=== PATIENT | male | born 1995 | race Caucasian/White ===

== ENCOUNTER 2018-01-22 04:36 | Emergency (ER) | payer OTHER, BC ==
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
[2018-01-22 05:18] VITALS: BP 111/68
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
== END 2018-01-22 06:00 | disposition home or self-care (01) ==
LOC: ER 04:36
DX: M79.1 Myalgia (principal); K08.9 Disorder of teeth and supporting structures, unspecified; F17.200 Nicotine dependence, unspecified, uncomplicated; V49.9XXA Car occupant (driver) (passenger) injured in unspecified traffic accident, initial encounter
CPT/HCPCS: 99284; 73110; 70450; 72125; L0120

== ENCOUNTER 2018-12-11 15:33 | Emergency (ER) | payer SELFPAY ==
[2018-12-11] MEDS ORDERED: DIPH/PERTUSS(ACELL)/TETANUS VAC/PF 0.5 ML SYR (>=10YO) IM ONE (15:56)
[2018-12-11] MEDS ORDERED: TETRACAINE HCL 0.5% OPH SOLN 4 ML OS ONE (15:56)
[2018-12-11] MEDS ORDERED: OXYCODONE-ACETAMINOPHEN 5-325 MG TABLET PO ONE (15:56)
--- NOTE | 2018-12-11 16:22 | ER Document Report ---
ED Medical Screen (RME) - General Chief Complaint: Eye Injury Stated Complaint: EYE INJURY WITH VISION LOSS Time Seen by Provider: 12/11/18 15:45 Notes: Patient is a 23-year-old male that presents to the emergency department for chief complaint of left eye injury. Patient states he was breaking a piece of wood, and it popped up and struck him in the left eye, this occurred around 230 today. ROS: Other than noted above, the 12 point review of systems was reviewed with the patient and were negative, all pertinent findings are included in the HPI. PHYSICAL EXAMINATION: Vital signs reviewed. GENERAL: Well-appearing, well-nourished and in no acute distress. HEAD: Superficial abrasions noted just inferior to the left orbit EYES: The left eye is injected ENT: Nares patent NECK: Normal range of motion CV: Heart regular rate and rhythm LUNGS: No respiratory distress Musculoskeletal: Normal range of motion NEUROLOGICAL: Normal speech PSYCH: Normal mood, normal affect. MDM: Patient seen and examined for rapid initial assessment. Vital signs reviewed. A comprehensive ED assessment and evaluation of the patient, analysis of test results and completion of the medical decision making process will be conducted by additional ED providers. *Note is created using voice recognition software and may contain spelling, syntax or grammatical errors. TRAVEL OUTSIDE OF THE [place] IN LAST 30 DAYS: No - Related Data Allergies/Adverse Reactions: No Known Drug Allergies Adverse Reaction (Verified 12/11/18 15:36) Past Medical History Renal/ Medical History: Denies: Hx Peritoneal Dialysis Past Surgical History: Reports: Hx Abdominal Surgery - bowel resection Physical Exam - Vital signs Vitals: Temp Pulse Resp BP Pulse Ox 98.2 F 117 H 14 140/55 H 97 12/11/18 15:40 12/11/18 15:40 12/11/18 15:40 12/11/18 15:40 12/11/18 15:40 Course - Vital Signs Vital signs: Temp Pulse Resp BP Pulse Ox 98.2 F 117 H 14 140/55 H 97 12/11/18 15:40 12/11/18 15:40 12/11/18 15:40 12/11/18 15:40 12/11/18 15:40
--- NOTE | 2018-12-11 19:29 | RADIOLOGY REPORT (SQ) ---
EXAM DESCRIPTION: CT ORBIT/SELLA WITHOUT COMPLETED DATE/TIME: 12/11/2018 7:14 pm REASON FOR STUDY: L eye struck by board, ?FB COMPARISON: None. TECHNIQUE: Noncontrasted images through the orbits windowed for bone and soft tissue. Additional co marianne and sagittal reconstructed images reviewed. All images stored on PACS. All CT scanners at this facility use dose modulation, iterative reconstruction, and/or weight based d osing when appropriate to reduce radiation dose to as low as reasonably achievable (ALARA). [facility]: Dose Right [facility]: CareDose [facility]: Dose Right [facility]: Teradose 4D [facility]: Smart Shoette RADIATION DOSE: CT Rad equipment meets quality standard of care and radiation dose reduction techniq ues were employed. CTDIvol: 30.4 mGy. DLP: 616 mGy-cm. mGy. LIMITATIONS: None. FINDINGS: FACIAL BONES: No fracture or bone lesion. ORBITS: Intact. No fracture. Symmetric intact globes and retroorbital soft tissues. PARANASAL SINUSES: Clear. No significant mucosal thickening, mass or fluid. No nasal polyps. Maxilla ry sinus outlets are patent. SOFT TISSUES: No mass or edema. INFERIOR BRAIN: Limited view. No acute findings. OTHER: No other significant finding. IMPRESSION: NO ACUTE FINDINGS. TECHNICAL DOCUMENTATION: JOB ID: [id number] Quality ID # [id number]: Final reports with documentation of one or more dose reduction techniques (e.g., Au tomated exposure control, adjustment of the mA and/or kV according to patient size, use of iterative reconstruction technique) 2010 [employer]- All Rights Reserved Reading location - IP/workstation name: [email or web address]
--- NOTE | 2018-12-11 19:56 | ER Document Report ---
HPI - HPI Patient complains to provider of: Left eye injury Time Seen by Provider: 12/11/18 15:45 Onset: This afternoon Onset/Duration: Sudden Quality of pain: Burning Pain Level: 5 Context: Patient states that he was in a hammer to hit on a wood board and after striking the board portion of the wood popped back hitting him in the left eye. Patient was not wearing any protective eyewear. Patient does not wear any glasses or contact lenses. Patient complains of some blurred vision to the left eye, eye pain and light sensitivity. Denies any loss of consciousness nausea or vomiting. Associated Symptoms: Other - Left eye pain. denies: Headache Exacerbated by: Denies Relieved by: Denies Similar symptoms previously: No Recently seen / treated by doctor: No - ROS ROS below otherwise negative: Yes Systems Reviewed and Negative: Yes All other systems reviewed and negative - EENT EENT: REPORTS: Eye problems - GASTROINTESTINAL Gastrointestinal: DENIES: Nausea - MUSCULOSKELETAL Musculoskeletal: DENIES: Back Pain, Neck Pain - DERM Skin Color: Normal Skin Problems: Abrasion Past Medical History - General Information source: Patient - Social History Smoking Status: Current Every Day Smoker Smoking Education Provided: Yes Frequency of alcohol use: None Drug Abuse: None Occupation: None Lives with: Family Family History: None Patient has suicidal ideation: No Patient has homicidal ideation: No - Medical History Medical History: Negative Renal/ Medical History: Denies: Hx Peritoneal Dialysis Past Surgical History: Reports: Hx Abdominal Surgery - Pyloric stenosis Vertical Provider Document - CONSTITUTIONAL Agree With Documented VS: Yes Exam Limitations: No Limitations General Appearance: WD/WN, No Apparent Distress - INFECTION CONTROL TRAVEL OUTSIDE OF THE [place] IN LAST 30 DAYS: No - HEENT HEENT: Normocephalic, PERRLA Notes: Left eye with corneal abrasion and floor seen uptake, abrasion does not overlie the pupil. No foreign body noted to cornea, no ulcer, no dendrite. Intraocular movements intact. Sclera mildly injected, left eye tearing. Positive photophobia. - RESPIRATORY Respiratory: No Respiratory Distress - MUSCULOSKELETAL/EXTREMETIES Musculoskeletal/Extremeties: MAEW - NEURO Level of Consciousness: Awake, Alert, Appropriate Motor/Sensory: No Motor Deficit - DERM Integumentary: Warm, Dry Notes: Abrasion to left lower eyelid Course - Re-evaluation Re-evalutation: 12/11/18 19:53 Dr. Albrecht to bedside to assist with slit lamp examination. Patient with corneal abrasion and no foreign body noted, no concern about globe rupture. No retained foreign body. - Vital Signs Vital signs: Temp Pulse Resp BP Pulse Ox 98.2 F 117 H 14 140/55 H 97 12/11/18 15:40 12/11/18 15:40 12/11/18 15:40 12/11/18 15:40 12/11/18 15:40 - Diagnostic Test Radiology reviewed: Reports reviewed Discharge - Discharge Clinical Impression: Cornea abrasion Qualifiers: Encounter type: initial encounter Laterality: left Qualified Code(s): S05.02XA - Injury of conjunctiva and corneal abrasion without foreign body, left eye, initial encounter Facial abrasion Qualifiers: Encounter type: initial encounter Qualified Code(s): S00.81XA - Abrasion of other part of head, initial encounter Condition: Stable Disposition: HOME, SELF-CARE Instructions: Abrasions of the Face ([facility]), Corneal Abrasion ([facility]), Eyedrop Use ([facility]), Tetanus Immunization Given ([facility]) Additional Instructions: Return immediately for any new or worsening symptoms Followup with opthamology, call tomorrow for follow-up appointment Prescriptions: Oxycodone HCl/Acetaminophen [Percocet 5-325 mg Tablet] 1 tab PO ASDIR PRN #12 tablet PRN Reason: Polymyxin B Sulfate/Tmp [Polytrim Oph Soln 10 ml] 1 drop LFT_EYE ASDIR #1 bottle Forms: Smoking Cessation Education Referrals: [facility] [Provider Group] - Follow up tomorrow
[2018-12-11 20:06] VITALS: BP 143/74
--- NOTE | 2018-12-12 09:17 | ER Document Report ---
Doctor's Note Notes: I personally and independently obtained patient history and examined the patient in conjunction with the APC and agree with the assessment, treatment plan and disposition of the patient as recorded by the APC, and have reviewed the APC's note. HISTORY OF PRESENT ILLNESS: Patient is a 23-year-old male that presents to the emergency department for chief complaint of left eye pain after injury. he reports that he was breaking a piece of wood with a hammer and a piece of wood, broke off and struck him in the left eye. This occurred around 2:30 PM today, he has had pain in the eye, redness, itching and tearing. ROS: Constitutional: Negative for fever. Cardiovascular: Negative for chest pain. Respiratory: Negative for shortness of breath. Gastrointestinal: Negative for vomiting or abdominal pain Musculoskeletal: Negative for arm, leg or back pain Skin: Negative for rash. Neurological: Negative for weakness or numbness. Other than noted above, the 12 point review of systems was reviewed with the patient and were negative, all pertinent findings are included in the HPI. PHYSICAL EXAMINATION: Vital signs reviewed, nursing noted reviewed. GENERAL: Patient appears uncomfortable on exam, but in no immediate distress HEAD: Superficial abrasion under the left eye, no active bleeding EYES: Left conjunctival injection, tearing, EOMI, PERRLA, right eye appears normal ENT: nares patent, oropharynx clear without exudates. Moist mucous membranes. NECK: Normal range of motion, supple without lymphadenopathy LUNGS: Breath sounds clear to auscultation bilaterally and equal. No wheezes rales or rhonchi. HEART: Regular rate and rhythm without murmurs ABDOMEN: Soft, nontender, normoactive bowel sounds. No rebound, guarding, or rigidity. No masses appreciated. EXTREMITIES: Nontender, good range of motion, no pitting or edema. NEUROLOGICAL: No focal neurological deficits. Moves all extremities spontaneously Motor and sensory grossly intact on exam. PSYCH: Normal mood, normal affect. SKIN: Warm, Dry, normal turgor, superficial abrasion noted just under the left orbit MEDICAL DECISION MAKING: Patient was seen and examined, vital signs reviewed, I personally evaluated the patient under slit lamp microscope, with fluorescein dye, and patient was noted to have a corneal abrasion, and the 2 to 3 o'clock position, curvilinear in pattern, lateral to the pupil, negative Olegario sign, no evidence of retained corneal foreign body. Patient will be placed on antibiotic eyedrops, and discharged home with medication for pain and to follow-up with ophthalmology which she is agreeable to. Please review detail APC documentation. *Note is created using voice recognition software and may contain spelling, syntax or grammatical errors.
== END 2018-12-11 20:10 | disposition home or self-care (01) ==
LOC: ER 15:33
PROC: 3E0234Z Introduction of Serum, Toxoid and Vaccine into Muscle, Percutaneous Approach (ICD-10-PCS; principal; 2018-12-11)
DX: S05.02XA Injury of conjunctiva and corneal abrasion without foreign body, left eye, initial encounter (principal); S00.81XA Abrasion of other part of head, initial encounter; W22.8XXA Striking against or struck by other objects, initial encounter; Y93.89 Activity, other specified; Z23 Encounter for immunization; F17.200 Nicotine dependence, unspecified, uncomplicated
CPT/HCPCS: 99283; 90471; 70480; 90715; J3490

== ENCOUNTER 2020-03-31 09:41 | Emergency (ER) | payer OTHER ==
[2020-03-31 09:47] VITALS: BP 123/74
--- NOTE | 2020-03-31 10:00 | ER Document Report ---
ED General - General Chief Complaint: Ankle Pain Stated Complaint: ANKLE PAIN Time Seen by Provider: 03/31/20 09:58 Primary Care Provider: RICHARD HOOVER JR, DO [ACTIVE PROVISIONAL STAFF] - Follow up tomorrow Notes: 24-year male presents with left ankle pain and swelling with inability to ambulate since yesterday when he landed wrong on trampoline. Does not know exactly what happened to the ankle. Pain is mostly lateral but also posterior medial. No knee pain calf pain leg pain or other injuries. No numbness or tingling. Smoker. Has been taking his brothers hydrocodone pills. TRAVEL OUTSIDE OF THE [place] IN LAST 30 DAYS: No - Related Data Allergies/Adverse Reactions: No Known Drug Allergies Adverse Reaction (Verified 12/11/18 15:36) Past Medical History - General Information source: Patient - Social History Smoking Status: Current Every Day Smoker Smoking Education Provided: Yes - The patient ED visit today was directly related to their abuse of tobacco. Family History: None Renal/ Medical History: Denies: Hx Peritoneal Dialysis Past Surgical History: Reports: Hx Abdominal Surgery - Pyloric stenosis Review of Systems - Review of Systems Notes: REVIEW OF SYSTEMS GEN: Denies fever, chills, weight loss ENT: Denies sore throat, nasal discharge, ear pain EYES: Denies blurry vision, eye pain, discharge CV: Denies chest pain, palpitations, edema RESP: Denies cough, shortness of breath, wheezing GI: Denies abdominal pain, nausea, vomiting, diarrhea MSK: Ankle pain, SKIN: Denies rash, skin lesions LYMPH: Denies swollen glands/lymph nodes NEURO: Denies headache, focal weakness or numbness, dizziness PSYCH: Denies depression, suicidal or homicidal ideation PHYSICAL EXAMINATION General: No acute distress, well-nourished Head: Atraumatic, normocephalic ENT: Mouth normal, oropharynx moist, no exudates or tonsillar enlargement Eyes: Conjunctiva normal, pupils equal, lids normal Neck: No JVD, supple, no guarding CVS: Normal rate, regular rhythm, no murmurs Resp: No resp distress, equal and normal breath sounds bilaterally GI: Nondistended, soft, no tenderness to palpation, no rebound or guarding Ext: Edema from the foot to the upper ankle on the left with minimal posterior medial tenderness and exquisite lateral malleolus tenderness. No fibular head tenderness no calf squeeze tenderness or tenderness above the ankle xt Back: No CVA or midline TTP Skin: No rash, warm Lymphatic: No lymphadeopathy noted Neuro: Awake, alert. Face symmetric. GCS 15. Physical Exam - Vital signs Vitals: Temp Pulse Resp BP Pulse Ox 98.4 F 78 16 123/74 98 03/31/20 09:45 03/31/20 09:45 03/31/20 09:45 03/31/20 09:45 03/31/20 09:45 Course - Re-evaluation Re-evalutation: 03/31/20 15:18 Patient presents with ankle injury yesterday. X-ray confirms fibula fracture, also has medial tenderness to suspect bimalleolar equivalent. Splinted nonweightbearing, asked not to take his brothers pain meds but I did prescribe him his own supply of narcotic given the severe pain. Will be referred to orthopedics for eventual likely surgery. Given splint precautions. No signs of compartment syndrome or neurovascular compromise in the ED. I have discussed with the patient there likely diagnosis, aftercare plan, follow-up plans and my usual and customary return precautions. They verbalized understanding of this. - Vital Signs Vital signs: Temp Pulse Resp BP Pulse Ox 98.4 F 78 16 123/74 98 03/31/20 09:57 03/31/20 09:45 03/31/20 09:45 03/31/20 09:45 03/31/20 09:45 Procedures - Immobilization Left Mid- Ankle Pre-Proc Neuro Vasc Exam: Normal Immobilizer type: Short Leg Posterior - With stirrups Performed by: Provider assisted Post-Proc Neuro Vasc Exam: Normal Alignment checked and good: Yes - Clinically Discharge - Discharge Clinical Impression: Closed fracture of distal end of fibula Qualifiers: Encounter type: initial encounter Fracture morphology: other fracture Laterality: left Qualified Code(s): S82.832A - Other fracture of upper and lower end of left fibula, initial encounter for closed fracture Condition: Good Disposition: HOME, SELF-CARE Instructions: Use of Crutches ([facility]), Fractured Ankle (Bimalleolar) ([facility]), Oral Narcotic Medication ([facility]) Prescriptions: Oxycodone HCl/Acetaminophen [Percocet 5-325 mg Tablet] 1 - 2 tab PO Q4H PRN #15 tablet PRN Reason: Forms: Return to Work Referrals: RICHARD HOOVER JR, DO [ACTIVE PROVISIONAL STAFF] - Follow up tomorrow
--- NOTE | 2020-03-31 10:38 | RADIOLOGY REPORT (SQ) ---
EXAM DESCRIPTION: ANKLE LEFT COMPLETE IMAGES COMPLETED DATE/TIME: 03/31/2020 10:19 am REASON FOR STUDY: injury COMPARISON: None. NUMBER OF VIEWS: Three views. TECHNIQUE: AP, lateral, and oblique radiographic images acquired of the left ankle. LIMITATIONS: None. FINDINGS: MINERALIZATION: Normal. BONES: Spiral fracture distal fibula at level of syndesmosis. 1/2 shaft width posterior displacement . JOINTS: No effusions. SOFT TISSUES: Lateral swelling. OTHER: No other significant finding. IMPRESSION: Fracture distal fibula. TECHNICAL DOCUMENTATION: JOB ID: [id number] 2010 [employer]- All Rights Reserved Reading location - IP/workstation name: [email or web address]
== END 2020-03-31 10:58 | disposition home or self-care (01) ==
LOC: ER 09:41
PROC: 2W3RX1Z Immobilization of Left Lower Leg using Splint (ICD-10-PCS; principal; 2020-03-31)
DX: S82.832A Other fracture of upper and lower end of left fibula, initial encounter for closed fracture (principal); M25.572 Pain in left ankle and joints of left foot; M79.89 Other specified soft tissue disorders; X58.XXXA Exposure to other specified factors, initial encounter; Y93.44 Activity, trampolining; F17.210 Nicotine dependence, cigarettes, uncomplicated
CPT/HCPCS: 99283

== ENCOUNTER 2020-04-11 11:45 | Day surgery (SDC) | payer OTHER ==
[2020-04-07 13:29] LABS: HEMATOCRIT 43.9 % (37.9-51.0); HEMOGLOBIN 15.3 g/dL (13.5-17.0); MEAN CORPUSCULAR HEMOGLOBIN 31.7 pg (27.0-33.4); MEAN CORPUSCULAR HGB CONC 34.9 g/dL (32.0-36.0); MEAN CORPUSCULAR VOLUME 91 fl (80-97); PLATELET COUNT 308 10^3/uL (150-450); RED BLOOD COUNT 4.83 10^6/uL (4.35-5.55); RED CELL DISTRIBUTION WIDTH 12.8 % (11.5-14.0); WHITE BLOOD COUNT 8.9 10^3/uL (4.0-10.5)
[2020-04-07 13:43] LABS: ANION GAP 6 (5-19); BLOOD UREA NITROGEN 12 mg/dL (7-20); CALCIUM 9.9 mg/dL (8.4-10.2); CARBON DIOXIDE 31 mmol/L (22-30); CHLORIDE 100 mmol/L (98-107); GLUCOSE 71 mg/dL (75-110); POTASSIUM 4.6 mmol/L (3.6-5.0)
[~2020-04-11 11:45] MED LIST: ACETAMINOPHEN 325 MG TABLET PO PRN; CEFAZOLIN 2 GM/D5W RTU 2 GM/50 ML RTUPB IV ONE; CEFAZOLIN 2 GM/D5W RTU 2 GM/50 ML RTUPB IV PRN; GABAPENTIN 100 MG CAPSULE PO PRN; OXYCODONE HCL SR 10 MG TABLET PO PRN; SCOPOLAMINE HYDROBROMIDE 1.5 MG PATCH.TD72 TD PRN; TRAMADOL HCL 50 MG TABLET PO PRN
[2020-04-11] MEDS ORDERED: OXYCODONE HCL SR 10 MG TABLET PO ONE ×2 (12:28→17:04)
[2020-04-11] MEDS ORDERED: ACETAMINOPHEN 325 MG TABLET ONE (12:28)
[2020-04-11] MEDS ORDERED: SCOPOLAMINE HYDROBROMIDE 1.5 MG PATCH.TD72 ONE (12:28)
[2020-04-11] MEDS ORDERED: GABAPENTIN 100 MG CAPSULE ONE (12:29)
[2020-04-11] MEDS ORDERED: MORPHINE SULFATE 10 MG/ML INJ ONE (14:03)
[2020-04-11] MEDS ORDERED: FENTANYL CITRATE INJ/PF 250 MCG/5 ML AMPULE ONE (14:03)
[2020-04-11] MEDS ORDERED: MIDAZOLAM 2 MG/2 ML INJ ONE (14:03)
[2020-04-11] MEDS ORDERED: ONDANSETRON HCL INJ/PF 4 MG/2 ML SDV ONE (14:03)
[2020-04-11] MEDS ORDERED: DEXAMETHASONE SOD PHOSPHATE INJ 4 MG/1 ML VIAL ONE (14:03)
[2020-04-11] MEDS ORDERED: PROPOFOL INJ 200 MG/20 ML VIAL IV ONE (14:04)
[2020-04-11] MEDS ORDERED: HYDROMORPHONE HCL INJ/PF 2 MG/ML AMPULE ONE (14:47)
[2020-04-11] MEDS ORDERED: LIDOCAINE 1% INJ-PF (10 MG/ML) 30 ML SDV ONE (14:56)
[2020-04-11] MEDS ORDERED: BUPIVACAINE HCL 0.5 % INJ/PF 30 ML SDV ONE (14:56)
--- NOTE | 2020-04-11 15:51 | RADIOLOGY REPORT (SQ) ---
EXAM DESCRIPTION: ANKLE LEFT AP/LATERAL IMAGES COMPLETED DATE/TIME: 04/11/2020 3:37 pm REASON FOR STUDY: ORIF L ANKLE S82.61XA DISP FX OF LATERAL MALLEOLUS OF RIGHT FIBULA, INIT COMPARISON: None. FLUOROSCOPY TIME: 0.7 minutes Spot images saved to PACS. TECHNIQUE: Intra-operative images acquired during surgical procedure to evaluate progress. NUMBER OF IMAGES: 6 LIMITATIONS: None. FINDINGS: Fluoroscopy was provided for intraoperative procedure. Please refer to the operative repo rt for further discussion. IMPRESSION: IMAGE(S) OBTAINED DURING PROCEDURE. COMMENT: Quality ID [id number]: Final reports for procedures using fluoroscopy that document radiation exp osure indices, or exposure time and number of fluorographic images (if radiation exposure indices are not available) Please consult full operative report of the attending physician for description of the procedure. TECHNICAL DOCUMENTATION: JOB ID: [id number] 2010 [employer]- All Rights Reserved Reading location - IP/workstation name: [email or web address]
--- NOTE | 2020-04-11 15:52 | RADIOLOGY REPORT (SQ) ---
EXAM DESCRIPTION: NO CHG FLUORO COMPLETE DATE/TIME: 04/11/2020 3:37 pm REASON FOR STUDY: ORIF L ANKLE S82.61XA DISP FX OF LATERAL MALLEOLUS OF RIGHT FIBULA, INIT FINDINGS: Please see combined report for performance of procedure and radiologic supervision and int erpretation. IMPRESSION: Please see combined report for performance of procedure and radiologic supervision and i nterpretation. Reading location - IP/workstation name: [email or web address]
[2020-04-11] MEDS: FENTANYL CITRATE INJ/PF 100 MCG/2 ML AMPUL ONE ×2 (15:58→16:10)
--- NOTE | 2020-04-11 16:00 | Operative Report ---
Operative Report DATE OF SURGERY: 04/11/20 PREOPERATIVE DIAGNOSIS: Left bimalleolar equivalent ankle fracture POSTOPERATIVE DIAGNOSIS: Left bimalleolar equivalent ankle fracture OPERATION: Left ankle open reduction internal fixation SURGEON: RICHARD HOOVER JR ANESTHESIA: Spinal COMPLICATIONS: None ESTIMATED BLOOD LOSS: 10 cc PROCEDURE: The patient sustained a left ankle fracture with a lateral malleolus fracture and a syndesmotic injury with medial clear space widening. After discussing treatment options including risks, benefits, potential outcomes and and answering all patient questions, the patient provided informed operative consent for left ankle open reduction internal fixation. The patient was brought to the operating suite and laid supine on the operating table. He was provided with 2 g of Ancef. The left lower extremity was prepped and draped in sterile sterile fashion. A timeout was performed. The left lower extremity was then exsanguinated with Esmarch and the tourniquet was inflated to 280 mmHg. The incision was drawn out and then a lateral incision was made to the fibula through a standard approach. A branch of the superficial peroneal nerve was identified crossing at the proximal aspect of the incision, this was protected and retracted anteriorly. The fracture was then identified and reduced and held with a lobster claw. Following this 2 syndesmotic screws were placed across the fracture. A straight neutralization plate was chosen and bent to the contour of the fibula. This was fixed distally and proximally with the assistance of fluoroscopy. All screws obtained excellent bite. Following this a external rotation stress as well as a Worthington test was performed under fluoroscopy to assess the syndesmosis which was found to be disrupted. We then reduced the syndesmosis with a large pointed reduction forcep to achieve ideal reduction and to determine the appropriate trajectory of the syndesmotic fixation. We then proceeded to place a Arthrex tight rope syndesmotic fixation device. After this final fluoroscopy was taken. A repeat external rotation stress test was performed and found the syndesmosis to be stable. The wound was copiously irrigated with sterile saline solution followed by wound closure with deep 2-0 Monocryl in the fascia to cover the plate in a running fashion. This was followed with by inverted interrupted 2-0 Monocryl in the subcutaneous tissue and then finally 3-0 nylon in a running horizontal mattress. Sterile dressings were then placed followed by a posterior you well molded and well- padded splint. The patient was then awakened from anesthesia and transferred to the PACU in stable condition.
[2020-04-11] MEDS ORDERED: PROMETHAZINE HCL INJ 25 MG/1 ML VIAL ONE (16:14)
--- NOTE | 2020-04-11 16:14 | Discharge Summary ---
Discharge Summary (SDC) - Discharge Final Diagnosis: Left bimalleolar ankle fracture equivalent Date of Surgery: 04/11/20 Condition: Stable Treatment or Instructions: Non-weight bearing LLE Maintain splint until seen in the office Keep elevated LLE Pain medication as prescribed from the office Aspirin 325 daily for 4 weeks Follow in the office in 7-10 days Respiratory Treatments at Home: Deep Breathing/Coughing Discharge Activity: No Driving, Keep Legs Elevated, No Lifting Over 10 Pounds, Slowly Increase Activity, No tub bath Adaptive Devices on Discharge: Axillary Crutches Report the Following to Your Physician Immediately: Shortness of Breath, Fever over 101 Degrees, Unusual Bleeding, Drainage-Yellow
[2020-04-11] MEDS ORDERED: FENTANYL CITRATE INJ/PF 100 MCG/2 ML AMPUL ONE (16:15)
[2020-04-11] MEDS ORDERED: DIPHENHYDRAMINE HCL 50 MG/ML VIAL IV PRN (16:28)
[2020-04-11] MEDS ORDERED: FENTANYL CITRATE INJ/PF 100 MCG/2 ML AMPUL IV PRN ×3 (16:28)
[2020-04-11] MEDS ORDERED: MORPHINE SULFATE 10 MG/ML INJ IV PRN (16:28)
[2020-04-11] MEDS ORDERED: PROMETHAZINE HCL INJ 25 MG/1 ML VIAL IV PRN (16:28)
[2020-04-11] MEDS ORDERED: MEPERIDINE HCL/PF INJ 25 MG/1 ML DISP.SYRIN IV PRN (16:28)
[2020-04-11 18:12] VITALS: BP 137/97
== END 2020-04-11 18:05 | disposition home or self-care (01) ==
LOC: OROUT 11:45
PROVIDERS: ATTEND Orthopaedic Surgery
DX: S82.842A Displaced bimalleolar fracture of left lower leg, initial encounter for closed fracture (principal); X58.XXXA Exposure to other specified factors, initial encounter; Y93.39 Activity, other involving climbing, rappelling and jumping off; Z03.818 Encounter for observation for suspected exposure to other biological agents ruled out
CPT/HCPCS: 36415; 85027; 87635; 80048; 73600; 27814; J2250; J3490 ×2; J1100; J3010 ×2; J2270; J2550; J2405; J2704; J0690; C9803; J1170